=== PATIENT | male | born 1985 | race American Indian/Alaskan Native ===

== ENCOUNTER 2016-09-17 18:56 | Emergency (ER) | payer MEDICAID, OTHER ==
[2016-09-17 19:11] VITALS: BP 129/79; PULSE 87; RESP 20; TEMP 98.1; O2SAT 98
[2016-09-17] MEDS ORDERED: Oxycodone/Acetaminophen 5/325 mg Tab PO STA (19:29)
[2016-09-17] MEDS ORDERED: Oxycodone/Acetaminophen 5/325 mg Tab ONE (19:36)
--- NOTE | 2016-09-17 20:10 | C.PDOC ---
Time Seen by Provider: 09/17/16 19:21 Chief Complaint (Nursing): Lower Extremity Problem/Injury Past Medical History Vital Signs: Last Vital Signs Temp 98.1 F 09/17/16 19:06 Pulse 87 09/17/16 19:06 Resp 20 09/17/16 19:06 BP 129/79 09/17/16 19:06 Pulse Ox 98 09/17/16 19:06 - Social History Hx Alcohol Use: No Hx Substance Use: No - Immunization History Hx Tetanus Toxoid Vaccination: No Hx Influenza Vaccination: No Hx Pneumococcal Vaccination: No ED Course And Treatment O2 Sat by Pulse Oximetry: 98 Disposition Counseled Patient/Family Regarding: Diagnosis, Need For Followup, Rx Given - Disposition Referrals: Trae Jones III, MD [Staff Provider] - Disposition: HOME/ ROUTINE Disposition Time: 20:04 Condition: STABLE Additional Instructions: Please follow up with orthopedist Take motrin PO Elevate his leg Return to ER if worse Prescriptions: Ibuprofen [Motrin Tab] 800 mg PO QID #30 tab Instructions: Knee Sprain (ED) - Clinical Impression Clinical Impression: Right knee sprain
--- NOTE | 2016-09-17 20:15 | C.PDOC ---
History Of Present Illness Patient is a 31 y/o male that presents to the emergency department for evaluation of right knee pain. Patient states he was playing football, when his right knee buckled in, and his right leg extended backwards. Pt presents with increased pain and swelling to right knee. Otherwise, denies any direct trauma, head injury, LOC, extremity weakness/numbness, or any other associated symptoms at this time. Time Seen by Provider: 09/17/16 19:21 Chief Complaint (Nursing): Lower Extremity Problem/Injury History Per: Patient History/Exam Limitations: no limitations Onset/Duration Of Symptoms: Hrs Current Symptoms Are (Timing): Still Present Recent travel outside of the [place]: No Additional History Per: Patient Past Medical History Reviewed: Historical Data, Nursing Documentation, Vital Signs Vital Signs: Last Vital Signs Temp 98.1 F 09/17/16 19:06 Pulse 87 09/17/16 19:06 Resp 20 09/17/16 20:36 BP 129/79 09/17/16 19:06 Pulse Ox 98 09/17/16 20:27 Family History: States: No Known Family Hx - Social History Hx Alcohol Use: No Hx Substance Use: No - Immunization History Hx Tetanus Toxoid Vaccination: No Hx Influenza Vaccination: No Hx Pneumococcal Vaccination: No Review Of Systems Except As Marked, All Systems Reviewed And Found Negative. Constitutional: Negative for: Fever Musculoskeletal: Positive for: Leg Pain (right knee pain and swelling) Neurological: Negative for: Weakness, Numbness Physical Exam - Physical Exam Appears: Non-toxic, No Acute Distress Skin: Normal Color, Warm, Dry, No Ecchymosis Head: Atraumatic, Normacephalic Eye(s): bilateral: Normal Inspection, EOMI Extremity: No Normal ROM (limited ROM to right knee secondary to pain), Tenderness (anterior aspect of right knee, greater in the infrapatellar area of right knee), Capillary Refill (< 2 sec.), No Deformity, Swelling (minimal swelling to anterior aspect of right knee) Extremity: Bilateral: Normal Color And Temperature Pulses: Left Dorsalis Pedis: Normal, Right Dorsalis Pedis: Normal Neurological/Psych: Oriented x3, Normal Speech, Normal Cognition, Normal Motor, Normal Sensation (normal strength and sensation) ED Course And Treatment O2 Sat by Pulse Oximetry: 98 (on RA) Pulse Ox Interpretation: Normal Progress Note: Right knee x-ray ordered and reviewed. Pt was given Motrin and Percocet in the ER. On re-exam, patient reports improvement of pain, reports feeling better. Knee brace applied to right knee by CP and checked by me and given crutches with instructions. Patient is being discharged home, with instructions to follow up with orthopedist. 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 - Scribe Statement The provider has reviewed the documentation as recorded by the Abhishekibe Sisi Garcia All medical record entries made by the Scribe were at my direction and personally dictated by me. I have reviewed the chart and agree that the record accurately reflects my personal performance of the history, physical exam, medical decision making, and the department course for this patient. I have also personally directed, reviewed, and agree with the discharge instructions and disposition.
--- NOTE | 2016-09-18 09:05 | RAD ---
PROCEDURE: Right Knee Radiographs. HISTORY: pain, twisting injury COMPARISON: None. FINDINGS: BONES: No evidence of acute displaced fracture nor dislocation. JOINTS: Normal. No osteoarthritis. JOINT EFFUSION: Moderately large suprapatellar joint effusion. OTHER FINDINGS: Small calcification within the popliteal region could represent calcification within a popliteal cyst. . There is also small rounded radiopaque density overlying the midshaft of the femur of uncertain etiology seen on the lateral projection. . Clinic correlation with physical exam recommended. IMPRESSION: Moderately large joint effusion. Internal derangement could be excluded with followup MRI. Report placed in PA review folder followup
== END 2016-09-17 20:36 | disposition home or self-care (01) ==
LOC: C.ER 18:56
DX: S83.91XA Sprain of unspecified site of right knee, initial encounter (principal); X58.XXXA Exposure to other specified factors, initial encounter; Y93.61 Activity, american tackle football

== ENCOUNTER 2017-07-11 19:45 | Emergency (ER) | payer OTHER ==
[2017-07-11] MEDS ORDERED: Sodium Chloride 0.9% 1,000 ML IV ONE (21:53)
--- NOTE | 2017-07-11 21:55 | C.PDOC ---
History Of Present Illness 32 yo male, presnets with abd pain n/v/d since yesterday. decreased po intake at home. nofever no blood in stool. no sick contacts. Time Seen by Provider: 07/11/17 21:51 Chief Complaint (Nursing): Abdominal Pain Past Medical History Reviewed: Historical Data, Nursing Documentation, Vital Signs Vital Signs: Last Vital Signs Temp 97.9 F 07/12/17 00:22 Pulse 61 07/12/17 00:22 Resp 22 07/12/17 00:22 BP 112/66 07/12/17 00:22 Pulse Ox 98 07/12/17 00:45 Family History: States: Unknown Family Hx - Social History Hx Alcohol Use: No Hx Substance Use: No - Immunization History Hx Tetanus Toxoid Vaccination: No Hx Influenza Vaccination: Yes Hx Pneumococcal Vaccination: No Review Of Systems Gastrointestinal: Positive for: Nausea, Vomiting, Abdominal Pain, Diarrhea Physical Exam - Physical Exam Appears: Well, No Acute Distress Skin: Normal Color, Warm, Dry Eye(s): bilateral: Normal Inspection, PERRL, EOMI Nose: Normal Throat: Normal Neck: Normal Cardiovascular: Rhythm Regular Respiratory: Normal Breath Sounds Gastrointestinal/Abdominal: Normal Exam, Soft, Tenderness (minimal non focal), No Guarding, No Rebound Back: Normal Inspection Extremity: Normal ROM ED Course And Treatment - Laboratory Results Result Diagrams: 07/11/17 22:31 07/11/17 22:31 O2 Sat by Pulse Oximetry: 98 Medical Decision Making Medical Decision Making: r.o gastritis food poisoning colitis- labs pending pt reassesed taking po bedside abd soft no ttp. notified of microscopic hematuria. pt asking for dc. advise ooutpt fu and return precautions Disposition - Disposition Referrals: Non [facility] Provider, [Primary Care Provider] - [facility] [Outside] [employer] [Outside] Tomás Royal MD [Staff Provider] - Aron Marshall MD [Staff Provider] - Disposition: HOME/ ROUTINE Disposition Time: 23:57 Condition: STABLE Additional Instructions: please discuss the results of your labs tests and urine with your doctor/clinic and specialists return to er with worsening symptoms or concerns. Instructions: Acute Abdomen (Belly Pain) Forms: [facility] (Bel[place]ian), Work Excuse - Clinical Impression Clinical Impression: Abdominal pain
[2017-07-11] MEDS ORDERED: Sodium Chloride 0.9% 1,000 ML ONE (22:21)
[2017-07-11 22:37] LABS: BASO % 0.7 % (0.0-2.0); EOS # 0.1 K/uL (0.0-0.7); EOS % 1.3 % (0.0-4.0); HEMOGLOBIN 13.9 g/dL (12.0-18.0); LYMPH % 13.7 % (20.0-40.0); MEAN CORPUSCULAR HGB CONC 33.7 g/dL (33.0-37.0); MEAN PLATELET VOLUME 8.6 fL (7.2-11.7); MONO # 0.5 K/uL (0.0-0.8); MONO % 7.7 % (0.0-10.0); NEUT # 5.3 K/uL (1.8-7.0); NEUT % 76.6 % (50.0-75.0); RBC 4.81 Mil/uL (4.40-5.90); RED CELL DISTRIBUTION WIDTH 15.2 % (11.5-14.5)
[2017-07-11 22:39] VITALS: RESP 22
[2017-07-11 22:45] LABS: INR 1.2; PROTHROMBIN TIME 13.9 SECONDS (9.7-12.2)
[2017-07-11 23:03] LABS: ALB/GLOB RATIO 1.3 (1.0-2.1); ALBUMIN 4.2 g/dL (3.5-5.0); ALT/SGPT 30 U/L (21-72); AST/SGOT 19 U/L (17-59); BLOOD UREA NITROGEN 16 mg/dL (9-20); GFR AFRICAN-AMERICAN > 60; GFR NON-AFRICAN AMERICAN > 60; LIPASE 63 U/L (23-300)
[2017-07-11 23:54] LABS: URINE BILIRUBIN NEGATIVE (NEGATIVE); URINE BLOOD 2+ (NEGATIVE); URINE CLARITY Hazy (Clear); URINE COLOR Yellow (YELLOW); URINE GLUCOSE (UA) NORMAL (Normal); URINE LEUKOCYTE ESTERASE NEG Leu/uL (Negative); URINE PROTEIN 1+ mg/dL (NEGATIVE)
[2017-07-12 00:23] VITALS: BP 112/66; PULSE 61; TEMP 97.9
[2017-07-12 00:45] VITALS: O2SAT 98
== END 2017-07-12 00:23 | disposition home or self-care (01) ==
LOC: SUPCPDRO 19:45 → C.ER 19:45
DX: R10.9 Unspecified abdominal pain (principal)
CPT/HCPCS: 80053; 81001; 83690; 85025; 85610; 85730; 96361; 96374; 96375; 99284; C9113; J2405; J7040